=== PATIENT | male | born 1930 | race Caucasian/White ===

== ENCOUNTER 2016-02-26 18:48 | Inpatient (IN) | payer MEDICARE, OTHER ==
[~2016-02-26] VITALS: Ht 188 cm; Wt 77.5 kg
[2016-02-26] MEDS ORDERED: KETOROLAC 60 MG/2 ML VIAL IM ONE (20:47)
[2016-02-26] MEDS ORDERED: SODIUM CHLORIDE 0.9% 1,000 ML IV SCH (23:35)
[2016-02-26] MEDS ORDERED: ACETAMINOPHEN 325 MG TAB PO PRN (23:35)
[2016-02-27] VITALS (8 sets, daily range): BP systolic 142–198; RESP 16–20; TEMP 97.3–98.1; Ht 188 cm; Wt 77.5 kg
[2016-02-27] MEDS: SODIUM CHLORIDE 0.9% 1,000 ML IV SCH (02:00)
[2016-02-27] MEDS: CARBIDOPA/LEVODOPA 25/100 TAB PO SCH ×3 (09:30→20:19)
[2016-02-27] MEDS: PREDNISOLONE ACET 1% OP SUSP EYE RT SCH (09:30)
[2016-02-27] MEDS: LEVETIRACETAM 250 MG TAB PO SCH ×2 (13:38→20:19)
[2016-02-27] MEDS: AMANTADINE 100 MG CAP PO SCH ×2 (13:38→20:19)
[2016-02-27] MEDS: ASPIRIN EC 81 MG TAB PO SCH (13:38)
[2016-02-27] MEDS: ENOXAPARIN 40 MG/0.4 ML SYR SUBQ SCH (13:39)
[2016-02-27] MEDS: PROPAFENONE 150 MG TAB PO SCH ×2 (17:46→20:19)
[2016-02-27] MEDS: DORZOLAMIDE 2% EYE EACH SCH (20:20)
[2016-02-27] MEDS ORDERED: Atorvastatin 40 MG TAB PO SCH (21:00)
[2016-02-27] MEDS ORDERED: LATANOPROST OP SOLN EYE EACH SCH (21:00)
[2016-02-27] MEDS ORDERED: PANTOPRAZOLE 40 MG TAB PO SCH (21:00)
[2016-02-28] MEDS: SODIUM CHLORIDE 0.9% 1,000 ML IV SCH (01:05)
[2016-02-28 03:14] VITALS: TEMP 98.1
[2016-02-28 03:15] VITALS: BP_SYST 172; BP_SYST 180
[2016-02-28 04:40] VITALS: BP_SYST 169
[2016-02-28 07:22] VITALS: BP_SYST 175; RESP 18; TEMP 98.1
[2016-02-28] MEDS: DORZOLAMIDE 2% EYE EACH SCH (09:33)
[2016-02-28] MEDS: LEVETIRACETAM 250 MG TAB PO SCH (09:35)
[2016-02-28] MEDS: ASPIRIN EC 81 MG TAB PO SCH (09:35)
[2016-02-28] MEDS: CARBIDOPA/LEVODOPA 25/100 TAB PO SCH ×2 (09:35→16:35)
[2016-02-28] MEDS: PREDNISOLONE ACET 1% OP SUSP EYE RT SCH (09:35)
[2016-02-28] MEDS: ENOXAPARIN 40 MG/0.4 ML SYR SUBQ SCH (09:35)
[2016-02-28] MEDS: AMANTADINE 100 MG CAP PO SCH (09:35)
[2016-02-28] MEDS: PROPAFENONE 150 MG TAB PO SCH ×2 (09:36→16:35)
[2016-02-28] MEDS ORDERED: amLODIPine 5 MG TAB PO SCH (11:20)
[2016-02-28 11:21] VITALS: BP_SYST 155; RESP 16; TEMP 97.3
[2016-02-28 16:21] VITALS: BP_SYST 155; RESP 16; TEMP 97.3
== END 2016-02-28 16:52 | disposition home or self-care (01) | DRG 149 ==
LOC: ENRESERVTM → ENRESERVDT → ER 18:48 → EMR 23:31 → ENPENDDIS 23:31 → PCU2 02-27 00:38
PROVIDERS: ADMIT Family Medicine; ATTEND Family Medicine
DX: R42 Dizziness and giddiness (principal); G20 Parkinson's disease; N18.3 Chronic kidney disease, stage 3 (moderate); I12.9 Hypertensive chronic kidney disease with stage 1 through stage 4 chronic kidney disease, or unspecified chronic kidney disease; E86.0 Dehydration; H54.41 Blindness, right eye, normal vision left eye; H91.90 Unspecified hearing loss, unspecified ear; I65.21 Occlusion and stenosis of right carotid artery; Z86.73 Personal history of transient ischemic attack (TIA), and cerebral infarction without residual deficits
CPT/HCPCS: 36415; 70450; 70544; 70551; 76770; 80053; 81003; 84300; 85025; 93005; 93880; 99220; 99233; 99239